=== PATIENT | female | born 1990 | race Two or more races ===

== ENCOUNTER 2024-10-08 11:30 | Outpatient (RCR) | payer MEDICAID, SELFPAY ==
--- NOTE | 2024-09-18 11:08 | PTNOTE_ITS ---
PT OP Initial Eval Patient Information Outpatient Physical Therapy Treatment Date: 09/18/24 Visit Reasons: PLANTAR FASCIAL Medical Diagnosis: M72.2 M79.676 Treatment Dx #1: L foot pain Start of Care: 09/18/24 Date of Onset: 05/24/24 Smoking Status Smoking Status: Never smoker Initial Assessment Subjective: Pt is 33 yr old female s/p L plantar fascia sx and heel spur excision in May. She presents ambulating with one crutch in L hand ambulating slowly limited distances. She uses the [employer] for grocery shopping. She thinks she can stand and walk for about 25 minutes max without the crutch, and about 40 mins with it. This limits HH chores, standing to do dishes and mopping. She used to work in the case. PMH: none Imaging: none available Pt goal: to walk further without crutch and pain in order to RTW Objective: L ankle ArOM DF: neutral PF: 45 deg Inv/Eversion 15 deg Strength: Ankle DF 3-/5, PF: 4-/5 Heel raise: unable Gait: antalgic with decreased WB on L. TTP: mod/high of plantar heel and proximal plantar fascia Sensation: intact to light touch of L foot Assessment: Pt presentation consistent with referring Dx. Pt has limited ankle DF ROM ? and gastroc tightness and decreased ankle PF strength with heel raises. ? Pt ambulates with antalgic gait pattern and painful WB on L foot. Pt requires skilled therapy to meet goals and has fair rehab potential. 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 Independent with HEP ? 2. Improved DF ROM to 10 deg and PF to 50 deg ? 3. Decreased TTP from mod to min of incision scars and plantar aspect of foot ? 4. Improved ambulatory distance to community distances with symmetrical gait pattern Treatment Plan ?1. Manual therapy ? 2. Therex ? 3. Modalities as indicated, moist heat, ice, estim Frequency and Duration: 2x a week for 12 visits then reassess Certification Dates: 09/18/24 to 12/19/24 Procedure Charges OP PT Eval Mod Complex 30 minutes: Yes
--- NOTE | 2024-09-24 11:24 | PT.ODAYNRPT ---
PT Outpatient Daily Note OP Daily Note Outpatient Physical Therapy Treatment Date: 09/24/24 Visit Reasons: PLANTAR FASCIAL Subjective: Same as time of evaluation Objective: See F/S for therex Assessment: Decreased WB and moderate/high TTP of heel with pressure and therex Plan: Continue per POC Length of Time (minutes) of Treatment: 30 Minutes Procedure Charges Therapeutic Exercise 30 minutes: Yes
--- NOTE | 2024-09-26 14:33 | PT.ODAYNRPT ---
PT Outpatient Daily Note OP Daily Note Outpatient Physical Therapy Treatment Date: 09/26/24 Visit Reasons: PLANTAR FASCIAL Subjective: L heel soreness after last visit Objective: See F/S for therex MT: STM L foot, heel and arch x5' Assessment: Decreased WB and moderate/high TTP of heel with pressure and therex Plan: Continue per POC Length of Time (minutes) of Treatment: 30 Minutes Procedure Charges Therapeutic Exercise 30 minutes: Yes
--- NOTE | 2024-10-03 12:57 | PT.ODAYNRPT ---
PT Outpatient Daily Note OP Daily Note Outpatient Physical Therapy Treatment Date: 10/03/24 Visit Reasons: PLANTAR FASCIAL Subjective: No new complaints. Objective: Please see flow sheet for ther ex list. Assessment: Pt continues to ambulate with crutch and antalgic gait. Light interventions performed with minimal performance. Plan: Continue with pOC. Length of Time (minutes) of Treatment: 30 Minutes Procedure Charges Therapeutic Exercise 30 minutes: Yes
--- NOTE | 2024-10-05 13:24 | PT.ODAYNRPT ---
PT Outpatient Daily Note OP Daily Note Outpatient Physical Therapy Treatment Date: 10/05/24 Visit Reasons: PLANTAR FASCIAL Subjective: Pt reports she notices she puts a lot of her weight on the outside of her foot when trying to step with L foot. Objective: Please see flow sheet for ther ex list. Assessment: Working on GT, pt demonstrates supination of foot when loading L foot, pt instructed on using towel under lateral foot to facilitate placing foot flat pt able to replicate. Plan: Continue working on GT. Procedure Charges Therapeutic Exercise 30 minutes: Yes
--- NOTE | 2024-10-08 13:12 | PT.ODAYNRPT ---
PT Outpatient Daily Note OP Daily Note Outpatient Physical Therapy Treatment Date: 10/08/24 Visit Reasons: PLANTAR FASCIAL Subjective: L heel soreness after last visit. Ambulating with one crutch Objective: See F/S for therex Assessment: Decreased WB and moderate/high TTP of heel with pressure and therex Plan: Continue per POC Length of Time (minutes) of Treatment: 30 Minutes Procedure Charges Therapeutic Exercise 30 minutes: Yes
== END 2024-10-08 23:59 | disposition home or self-care (01) ==
LOC: CPTX 11:30
PROVIDERS: PCP Physician Assistant; Referring Provider Podiatrist; Visit Provider Podiatrist
DX: M79.672 Pain in left foot (principal); M72.2 Plantar fascial fibromatosis; Z98.890 Other specified postprocedural states
CPT/HCPCS: 97110; 97162

== ENCOUNTER 2024-11-07 16:00 | Outpatient (RCR) | payer MEDICAID, SELFPAY ==
--- NOTE | 2024-10-10 17:37 | PT.ODAYNRPT ---
PT Outpatient Daily Note OP Daily Note Outpatient Physical Therapy Treatment Date: 10/10/24 Visit Reasons: Plantar Fascial Subjective: L heel soreness after last visit. Ambulating with one crutch Objective: See F/S for therex Assessment: Decreased WB and moderate/high TTP of heel with pressure and therex Plan: Continue per POC Length of Time (minutes) of Treatment: 30 Minutes Procedure Charges Therapeutic Exercise 30 minutes: Yes
--- NOTE | 2024-10-15 13:52 | PT.ODAYNRPT ---
PT Outpatient Daily Note OP Daily Note Outpatient Physical Therapy Treatment Date: 10/15/24 Visit Reasons: Plantar Fascial Subjective: L heel soreness after last visit. Ambulating with one crutch Objective: See F/S for therex MT: STM plantar fascia x5' Assessment: Decreased WB and moderate TTP of heel with manual therapy and therex Plan: Continue per POC Length of Time (minutes) of Treatment: 30 Minutes Procedure Charges Therapeutic Exercise 30 minutes: Yes
--- NOTE | 2024-10-22 11:36 | PT.ODAYNRPT ---
PT Outpatient Daily Note OP Daily Note Outpatient Physical Therapy Treatment Date: 10/22/24 Visit Reasons: Plantar Fascial Subjective: Continued L julio pain. Ambulating with one crutch Objective: See F/S for therex Assessment: Decreased WB and moderate TTP of heel with WB and therex Plan: Continue per POC Length of Time (minutes) of Treatment: 30 Minutes Procedure Charges Therapeutic Exercise 30 minutes: Yes
--- NOTE | 2024-10-24 13:19 | PT.ODAYNRPT ---
PT Outpatient Daily Note OP Daily Note Outpatient Physical Therapy Treatment Date: 10/24/24 Visit Reasons: Plantar Fascial Subjective: Pt is weening from using the crutch Objective: See F/S for therex Assessment: Decreased WB tolerance on L foot but can ambulate without the crutch safely in the clinic. She left it here so she is not tempted to use it. Plan: Continue per POC Length of Time (minutes) of Treatment: 30 Minutes Procedure Charges Therapeutic Exercise 30 minutes: Yes
--- NOTE | 2024-11-05 18:24 | PT.ODAYNRPT ---
PT Outpatient Daily Note OP Daily Note Outpatient Physical Therapy Treatment Date: 11/05/24 Visit Reasons: Plantar Fascial Subjective: Pt is weening from using the crutch with more L foot pain Objective: See F/S for therex MT: STM L foot x5' Assessment: Decreased WB tolerance on L foot due to increased pain and TTP Plan: Continue per POC Length of Time (minutes) of Treatment: 30 Minutes Procedure Charges Therapeutic Exercise 30 minutes: Yes
--- NOTE | 2024-11-07 16:40 | PT.ODS1RPT ---
PT OP Progress/Discharge Note Date of Service: 11/07/24 Progress Note/DC Note Progress Note/Discharge Note: DC Note Patient Information Visit Reasons: Plantar Fascial Service Continue Service or Discharge: Discharge Discharge Date: 11/07/24 Status Subjective: Pt is not using crutches to ambulate with high L foot pain. Insurance is changing tomorrow. Objective: L foot AROM: DF: 10 deg PF: 50 deg TTP: high of heel and plantar aspect of foot Gait: antalgic Assessment: Pt has attended the eval and 11 Rx sessions with good progress to meet L ankle AROM goals but the foot is more painful than the evaluation. She doesn't tolerate light pressure on heel and plantar fascia which may have a lumbar radiculopathy component possibly since trunk forward bending and rotation cause more foot pain. PT recommends further diagnostic imaging of the lumbar spine for possible L LE radiculopathy. Plan: D/C due to insurance change. Procedure Charges Therapeutic Exercise 30 minutes: Yes
== END 2024-11-07 23:59 | disposition home or self-care (01) ==
LOC: CPTX 16:00
PROVIDERS: PCP Podiatrist; Referring Provider Podiatrist; Visit Provider Podiatrist
DX: M79.672 Pain in left foot (principal); M72.2 Plantar fascial fibromatosis
CPT/HCPCS: 97110